=== PATIENT | female | born 1975 | race Two or more races ===

== ENCOUNTER 2017-01-03 11:02 | Observation (INO) | payer OTHER ==
[~2017-01-03] VITALS: Ht 152.4 cm; Wt 63.4 kg
[2017-01-03] VITALS (15 sets, daily range): BP systolic 113–131; BP diastolic 68–84; PULSE 68–118; RESP 12–28
[~2017-01-03 11:02] MED LIST: CEFAZOLIN 2 GM/50 ML (PMX) 50 ML IVPB SCH; PREN1TAB49; SEVOFLURANE 15 MIN ONE; SOD CHLORIDE 0.9% 1,000 ML IV SCH
[2017-01-03] MEDS ORDERED: LIDOCAINE 2% (SDV) 5 ML INJ ONE (14:39)
[2017-01-03] MEDS ORDERED: ROCURONIUM 50 MG INJ ONE (14:39)
[2017-01-03] MEDS ORDERED: NEOSTIGMINE 3 MG/3 ML SYRINGE ONE (14:39)
[2017-01-03] MEDS ORDERED: SUCCINYLCHOLINE CHLORIDE 100 MG/5 ML SYG IV ONE (14:39)
[2017-01-03] MEDS ORDERED: GLYCOPYRROLATE 0.4 MG INJ ONE ×2 (14:39→15:26)
[2017-01-03] MEDS ORDERED: PROPOFOL 20 ML ONE (14:39)
[2017-01-03] MEDS ORDERED: MEPERIDINE 100 MG INJ ONE (14:40)
[2017-01-03] MEDS ORDERED: METOCLOPRAMIDE 10 MG INJ ONE (14:47)
[2017-01-03] MEDS ORDERED: ONDANSETRON 4 MG INJ ONE (14:47)
[2017-01-03] MEDS ORDERED: CEFAZOLIN 1 GM INJ ONE (14:47)
[2017-01-03] MEDS ORDERED: BUPIVACAINE 0.25% (MPF) 30 ML INJ ONE (14:54)
[2017-01-03] MEDS ORDERED: ONDANSETRON 4 MG INJ IV PRN ×2 (15:00→22:30)
[2017-01-03] MEDS ORDERED: MEPERIDINE 25 MG INJ IV PRN (15:00)
[2017-01-03] MEDS ORDERED: LABETALOL HCL 20MG INJ IV PRN (15:00)
[2017-01-03] MEDS ORDERED: HYDROmorphONE (0.2 MG/ML) 10ML SYG IV PRN ×2 (15:00)
[2017-01-03] MEDS ORDERED: FENTAnyl 50 MCG/ML VIAL IV PRN ×2 (15:00)
[2017-01-03] MEDS ORDERED: EPHEDrine SULFATE 50 MG/5 ML SYG IV PRN (15:00)
[2017-01-03] MEDS ORDERED: DIPHENHYDRAMINE 50 MG INJ IV PRN (15:00)
[2017-01-03] MEDS ORDERED: MIDAZOLAM 1 MG/ML 2 ML INJ IV PRN (15:00)
[2017-01-03] MEDS ORDERED: morphine (1 MG/ML) 10ML SYRINGE IV PRN ×2 (15:00)
[2017-01-03] MEDS ORDERED: METOCLOPRAMIDE 10 MG INJ IV PRN (15:00)
[2017-01-03] MEDS ORDERED: hydrALAzine 20 MG INJ IV PRN (15:00)
--- NOTE | 2017-01-03 15:32 | OPR ---
Date/Time of Note Date/Time of Note DATE: 01/03/17 TIME: 15:31 Operative Report Procedure Date: January 03, 2017 Preoperative Diagnosis symptomatic gallstones Postoperative Diagnosis same Operation Performed lap davy Surgeon: Remberto RODRIGUEZ Specimens gallbladder Remberto RODRIGUEZ January 03, 2017 15:32
--- NOTE | 2017-01-03 15:55 | OPR ---
DATE OF OPERATION: 01/03/2017 INDICATION: This is a 41-year-old female with symptomatic gallstones. She requests surgical excisi on of her gallbladder. Risks, alternatives, benefits, and personnel were discussed with the patient . The patient expressed understanding and consents to the operation. PREOPERATIVE DIAGNOSIS: Symptomatic gallstones. POSTOPERATIVE DIAGNOSIS: Symptomatic gallstones. OPERATION: Laparoscopic cholecystectomy. SURGEON: Ilsa Campbell MD SPECIMEN: Gallbladder. COMPLICATIONS: None. ANESTHESIA: General. PROCEDURE: The patient was taken to the OR and prepped and draped in usual sterile fashion. Surgic al timeout was performed. IV antibiotics were given. Infraumbilical incision was made transversely with a 15 blade. Dissection cautery was carried down to the fascia. The fascia was opened with cu rved Lisa scissors. An 0 Vicryl U-stitch was placed in the fascia. Balloon [place] trocar was intro duced. Pneumoperitoneum was established. Midepigastric 12 mm optical trocar and right upper quadra nt and right upper flank 5 mm optical trocars are placed under direct visualization. Upon inspectio n, there were adhesions to the gallbladder which were taken down bluntly. The cystic duct was ident ified. The critical view was established. The cystic duct was divided using a 35 mm [place] vascul ar load stapler. Clips were placed for reinforcement. The cystic artery was identified and divided with 3 clips proximal, 1 clip distal. The gallbladder was taken off the gallbladder bed. There wa s good hemostasis. Gallbladder was retrieved using EndoCatch bag. Ports were removed under direct visualization. The 0 Vicryl U-stitch was tied down. Skin was closed using skin sergey. Local ane sthesia was injected. Dry dressings were applied. Dictated By: ILSA HODGSON/DOROTA Conf#: [id number] DID#: [id number]
[2017-01-03] MEDS ORDERED: HYDROCODONE/APAP (5/325) TAB PO ONE (16:00)
[2017-01-03] MEDS ORDERED: ACETAMINOPHEN 1000MG/100ML IV 100 ML IVPB PRN (22:30)
[2017-01-03] MEDS: HYDROCODONE/APAP (5/325) TAB PO PRN (22:55)
[2017-01-03] MEDS: DEXTROSE 5%-0.45% NACL 1,000 ML IV SCH (23:16)
[2017-01-04] MEDS ORDERED: PANTOPRAZOLE 40 MG INJ IV SCH (06:00)
[2017-01-04 07:31] VITALS: BP 90/57; RESP 18
[2017-01-04] MEDS: DEXTROSE 5%-0.45% NACL 1,000 ML IV SCH (09:39)
[2017-01-04] MEDS: HYDROCODONE/APAP (5/325) TAB PO PRN (09:40)
[2017-01-04 10:06] VITALS: BP 100/62
--- NOTE | 2017-01-04 11:25 | PDOCDIS ---
Discharge Instructions HOME CARE INSTRUCTIONS: Diet Instructions: Regular ACTIVITY: Activity Restrictions: Slowly Increase Activity Rest between Activity Avoid heavy lifting Do not operate Machinery Do not operate Power Tool Avoid Heavy Housework Bathing Restrictions: Sponge Bath FOLLOW UP/APPOINTMENTS Appointments Follow-up with primary MD in 1 week Follow-up with surgery as recommended Call 911 or go to the nearest hospital if the symptoms get worse. Discharge instructions reviewed with the patient patient verbalized understanding of discharge instructions plan discussed with Dr. Valdez, staff, patient KINACULLEN KITCHENBIR January 04, 2017 11:25
[2017-01-04] MEDS ORDERED: PANT40TA3 PO (11:27)
[2017-01-04] MEDS ORDERED: DOCU-144 PO (11:27)
--- NOTE | 2017-01-04 11:33 | DS ---
Date/Time of Note Date/Time of Note DATE: 01/04/17 TIME: 11:31 Discharge Summary Admission/Discharge Info Admit Date/Time January 03, 2017 at 18:35 Discharge Date/Time Patient Condition: Stable Home Meds Active Scripts Pantoprazole* (Protonix*) 40 Mg Tablet.dr, 40 MG PO DAILY, #20 TAB Prov:ALEXA LAMA 01/04/17 Docusate Sodium* (Colace*) 100 Mg Capsule, 100 MG PO BID, #30 CAP Prov:ALEXA LAMA 01/04/17 Reported Medications Vits W-Ca,Fe,Fa(<1MG) () 1 Tab Tablet 01/18/10 Primary Care Provider Debora Monaco Pending Labs Laboratory Tests Test 01/03/17 17:43 Bedside Glucose 144mg/dL (70-220) ALEXA LAMA January 04, 2017 11:33
--- NOTE | 2017-01-04 12:02 | HP ---
DATE OF ADMISSION: 01/03/2017 CHIEF COMPLAINT AND HISTORY OF PRESENT ILLNESS: The patient is a 41-year-old female with history o f x2 and also a history of excision of anal warts. The patient was seen by Dr. Campbell as an o utpatient due to symptomatic gallstones. [facility] with a normal common bile duct. The [facility] and underwent laparoscopic cholecystectomy. The patient postoperatively had significant pain and could not be discharged home. The patient was given IV. The patient also has postoperati ve. The patient also has vomiting, for which the patient was given IV Zofran as well as IV Protonix . Patient is feeling better and denies any chest pain. No reported fever or chills. No reported v omiting. The patient was able to go to the bathroom and has been able to urinate without any diffic ulty. No reported recent cholecystitis. No previous history of hypertension, diabetes, or any card iac disease. The patient does have postoperative pain for which she just received [place]. PAST SURGICAL HISTORY: C-sections x2 and excision of anal warts. ALLERGIES: NONE. SOCIAL HISTORY: No smoking, no alcohol. FAMILY HISTORY: Noncontributory. PHYSICAL EXAMINATION: GENERAL: The patient is conscious, awake, alert. VITAL SIGNS: Temperature 99.4, pulse 81, respirations 18, blood pressure 100/62, O2 saturation 98% on room air. HEENT: Conjunctivae and lids normal. Oropharynx clear. NECK: Supple. No mass, no thyromegaly. LUNGS: Clear to auscultation. CARDIOVASCULAR: S1, S2 normal. No murmur. ABDOMEN: Soft, nondistended. Dressing intact. EXTREMITIES: No leg edema. Pedal pulses palpable. SKIN: Without rash. NEUROLOGIC: The patient is awake, alert with no gross focal deficit. LABORATORY DATA PRIOR TO ADMISSION: Urine test negative. Sodium 140, potassium 4.2, BUN 12, creatinine 0.5, glucose 83. Coagulation profile normal. Hemoglobin prior to admission was 10. 5 and microcystic anemia. IMPRESSION: Symptomatic gallstones, status post laparoscopic cholecystectomy. PLAN: 1. The patient will be continued on IV fluid and was started on clear liquid diet, which was advanc ed to a low-cholesterol, low-fat diet. Patient will be discharged home once cleared by surgery. Th e patient has been advised to follow up with her PMD. 2. Microcytic anemia. I spoke with patient's , Endy, who also was interpreted during histo ry and physical. He stated that patient has menorrhagia for years and does have anemia. ____been a dvised to take iron supplement and to follow up with PMD upon discharge. Discharge planning once cl eared by surgery. Dictated By: NAOMI SCHULTZ/NTS Conf#: [id number] DID#: [id number]
--- NOTE | 2017-01-04 12:23 | PN ---
DATE: 01/04/2017 Postop day #1 laparoscopic cholecystectomy. SUBJECTIVE: Has been nauseous today morning, but now is better. Tolerated food. No vomiting. OBJECTIVE: VITAL SIGNS: Temperature 97.4, 64 to 81 heart rate, respirations 18, blood pressure 90/57, saturati on ____% on room air. Has been out of bed, walking around. PHYSICAL EXAMINATION: GENERAL: Alert, awake, oriented x3 in no distress. ABDOMEN: Soft, bowel sounds present. EXTREMITIES: No calf tenderness. ASSESSMENT: Status post laparoscopic cholecystectomy yesterday. Patient is doing fine, has tolerat ed diet. No vomiting. Abdominal pain is under control. Abdomen is soft. Has passed gas. So far, the patient can be discharged home if okay with the internal medicine beauty sales consultant. Dictated By: WANDA FELICIANO MD PS/NTS Conf#: [id number] DID#: [id number]
[2017-01-04 13:00] VITALS: BP 115/65; PULSE 76; RESP 18
== END 2017-01-04 14:30 | disposition home or self-care (01) ==
LOC: SDS 11:02 → MS2 18:35 → SDS 22:07
PROVIDERS: ADMIT Surgery; ATTEND Surgery
DX: K80.10 Calculus of gallbladder with chronic cholecystitis without obstruction (principal); E66.9 Obesity, unspecified; Z68.27 Body mass index [BMI] 27.0-27.9, adult
CPT/HCPCS: 47562; 82962; 88307; 88331; 96361; 96374; C9113; J0690; J1170; J2175; J2405; J2710; J2765; J3010; J7042; J7999; Z7500; Z7512; Z7610; G0378

== ENCOUNTER 2017-01-06 10:40 | Emergency (ER) | payer OTHER ==
[~2017-01-06] VITALS: Wt 75.0 kg
[~2017-01-06 10:40] MED LIST changes: -CEFAZOLIN 2 GM/50 ML (PMX) 50 ML IVPB SCH; +DOCU-144 PO; +PANT40TA3 PO; -SEVOFLURANE 15 MIN ONE; -SOD CHLORIDE 0.9% 1,000 ML IV SCH
--- NOTE | 2017-01-06 12:30 | ERA ---
ER Documentation Chief Complaint Date/Time DATE: 01/06/17 TIME: 12:29 Chief Complaint POST OP PAIN HPI This is a 41-year-old female who presents 3 days status post cholecystectomy with Dr. Mixon. Patient's chief complaint is numbness and lower and upper distal extremities. Patient is also complaining of nausea when taking the Percocet. Was prescribed pantoprazole as well. Patient denies vomiting, constipation, ROS All systems reviewed and are negative except as per history of present illness. Medications Home Meds Active Scripts Cephalexin* (Keflex*) 500 Mg Capsule, 500 MG PO QID for 5 Days, CAP Prov:DAVIS MOON PA-C 01/06/17 Pantoprazole* (Protonix*) 40 Mg Tablet.dr, 40 MG PO DAILY, #20 TAB Prov:ALEXA LAMA 01/04/17 Docusate Sodium* (Colace*) 100 Mg Capsule, 100 MG PO BID, #30 CAP Prov:ALEXA LAMA 01/04/17 Reported Medications Vits W-Ca,Fe,Fa(<1MG) () 1 Tab Tablet 01/18/10 Allergies Allergies: Coded Allergies: No Known Drug Allergy (Verified Allergy, Unknown, 01/17/10) Carrot (Verified Allergy, ITCHY THROAT, 11/09/12) Uncoded Allergies: APPLES (Allergy, ITCHY THROAT, 11/09/12) PMhx/Soc History of Surgery: Yes (BTL , S SECTION X 4 ) Anesthesia Reaction: No Hx Neurological Disorder: No Hx Respiratory Disorders: No Hx Cardiac Disorders: No Hx Psychiatric Problems: No Hx Miscellaneous Medical Probl: No Hx Alcohol Use: No Hx Substance Use: No Physical Exam Vitals Vital Signs Date Time Temp Pulse Resp B/P Pulse Ox O2 Delivery O2 Flow Rate FiO2 01/06/17 10:42 98.9 81 18 116/74 99 Physical Exam Const: [] Head: Atraumatic Eyes: Normal Conjunctiva ENT: Normal External Ears, Nose and Mouth. Neck: Full range of motion..~ No meningismus. Resp: Clear to auscultation bilaterally Cardio: Regular rate and rhythm, no murmurs Abd: Soft, non tender, non distended. Normal bowel sounds Skin: No petechiae or rashes Back: No midline or flank tenderness Ext: No cyanosis, or edema Neur: Awake and alert Psych: Normal Mood and Affect Result Diagram: 01/06/17 1228 01/06/17 1228 Results 24 hrs Laboratory Tests Test 01/06/17 12:28 01/06/17 13:59 White Blood Count 6.710^3/ul Red Blood Count 3.8610^6/ul Hemoglobin 9.2g/dl Hematocrit 31.3% Mean Corpuscular Volume 81.1fl Mean Corpuscular Hemoglobin 23.8pg Mean Corpuscular Hemoglobin Concent 29.4g/dl Red Cell Distribution Width 16.3% Platelet Count 44422^3/UL Mean Platelet Volume 8.6fl Neutrophils % 55.4% Lymphocytes % 33.7% Monocytes % 7.0% Eosinophils % 3.1% Basophils % 0.4% Nucleated Red Blood Cells % 0.0/100WBC Neutrophils # 3.710^3/ul Lymphocytes # 2.310^3/ul Monocytes # 0.510^3/ul Eosinophils # 0.210^3/ul Basophils # 0.010^3/ul Nucleated Red Blood Cells # 0.010^3/ul Sodium Level 143mmol/L Potassium Level 3.4mmol/L Chloride Level 101mmol/L Carbon Dioxide Level 28mmol/L Anion Gap 17 Blood Urea Nitrogen 10mg/dl Creatinine 0.60mg/dl Glucose Level 95mg/dl Calcium Level 9.3mg/dl Total Bilirubin 0.7mg/dl Direct Bilirubin 0.00mg/dl Indirect Bilirubin 0.7mg/dl Aspartate Amino Transf (AST/SGOT) 36IU/L Alanine Aminotransferase (ALT/SGPT) 71IU/L Alkaline Phosphatase 65IU/L Total Protein 7.6g/dl Albumin 4.2g/dl Globulin 3.40g/dl Albumin/Globulin Ratio 1.23 Lipase 162U/L Bedside Urine pH (LAB) 6.5 Bedside Urine Protein (LAB) Negative Bedside Urine Glucose (UA) Negative Bedside Urine Ketones (LAB) Trace Bedside Urine Blood 3+ Bedside Urine Nitrite (LAB) Negative Bedside Urine Leukocyte Esterase (L Negative Procedures/MDM Patient was worked up and evaluated for post bilateral upper and lower extremity numbness. Patient describes a stocking glove distribution numbness 2 days occurring after cholecystectomy. Patient denies any loss of bowel or bladder control. At this time a very low suspicion for Guillain-Enriquez as pulses and DTRs at the patellas are 2+ bilaterally. There is no loss of sensation and patient is able to differentiate between sharp and dull. CBC, CMP and lipase were taken. CBC showed a signs of chronic anemia consistent with physical exam and pill conjunctive of. Patient also had a urine dip which was consistent with lower urinary tract infection. Patient will be discharged with Keflex. Patient's vitals are stable. This case was presented to my attending who agrees with the assessment and plan. Patient will now be discharged with discharge instructions and return precautions. Departure Condition: Stable Additional Instructions: Follow up with your PCP or surgeon within the next 1-3 days for a more thorough evaluation and a possible referral to a specialist. Return the the emergency department immediately if symptoms worsen or change. If you have any questions regarding medications, ask your pharmacist or us before you leave. If any adverse reactions occur while taking your medications, discontinue the treatment and return to the emergency department immediately. Take your medications as directed, and complete the entire course of treatment. DAVIS MOON PA-C January 06, 2017 12:30
[2017-01-06 12:35] LABS: ADD SCAN DIFF NO
[2017-01-06 12:38] LABS: BASOPHILS % 0.4 % (0.0-2.0); EOSINOPHILS # 0.2 10^3/ul (0.0-0.5); EOSINOPHILS % 3.1 % (0.0-7.0); HEMATOCRIT 31.3 % (37.0-47.0); HEMOGLOBIN 9.2 g/dl (12.0-16.0); LYMPHOCYTES # 2.3 10^3/ul (0.8-2.9); LYMPHOCYTES % 33.7 % (15.0-51.0); MEAN CORPUSCULAR HEMOGLOBIN 23.8 pg (29.0-33.0); MEAN CORPUSCULAR HGB CONC 29.4 g/dl (32.0-37.0); MEAN CORPUSCULAR VOLUME 81.1 fl (82.0-101.0); MEAN PLATELET VOLUME 8.6 fl (7.4-10.4); MONOCYTE # 0.5 10^3/ul (0.3-0.9); NEUTROPHIL # 3.7 10^3/ul (1.6-7.5); NEUTROPHILS % 55.4 % (39.0-77.0); PLATELET COUNT 356 10^3/UL (140-415); RED BLOOD COUNT 3.86 10^6/ul (4.20-5.40); RED CELL DISTRIBUTION WIDTH 16.3 % (11.5-14.5); WHITE BLOOD COUNT 6.7 10^3/ul (4.8-10.8)
[2017-01-06 12:51] LABS: ALBUMIN 4.2 g/dl (3.3-4.9)
[2017-01-06 12:52] LABS: POTASSIUM 3.4 mmol/L (3.5-5.1)
[2017-01-06 12:54] LABS: ALBUMIN/GLOBULIN RATIO 1.23; BILIRUBIN,INDIRECT 0.7 mg/dl (0-1.1); BILIRUBIN,TOTAL 0.7 mg/dl (0.2-1.3); CREATININE 0.6 mg/dl (0.44-1.00); TOTAL PROTEIN 7.6 g/dl (6.1-8.1)
[2017-01-06 12:55] LABS: CALCIUM 9.3 mg/dl (8.4-10.2)
[2017-01-06 13:56] LABS: URINE BLOOD (Dip) POC 3+ (NEGATIVE)
[2017-01-06] MEDS ORDERED: CEPH-443 PO (14:13)
[2017-01-06 14:25] VITALS: BP 112/70; PULSE 62; RESP 18; TEMP 98.3
== END 2017-01-06 14:25 | disposition home or self-care (01) ==
LOC: FTE 10:40
DX: G89.18 Other acute postprocedural pain (principal); R10.9 Unspecified abdominal pain
CPT/HCPCS: 80053; 81003; 83690; 85025; Z7502; 99283